=== PATIENT | male | born 1940 | race Caucasian/White ===

== ENCOUNTER 2017-12-05 13:24 | Emergency (ER) | payer MEDICARE ==
[2017-12-05] MEDS: LIDOCAINE WITH 8.4% SOD BICARB 3 ML DISP.SYRIN. INJ (14:15)
== END 2017-12-05 14:49 | disposition home or self-care (01) ==
LOC: ER 13:24
DX: L02.212 Cutaneous abscess of back [any part, except buttock and flank] (principal); G20 Parkinson's disease
CPT/HCPCS: 10060; 99283; 99284